=== PATIENT | male | born 1955 | race Caucasian/White ===

== ENCOUNTER 2018-07-22 12:27 | Inpatient (IN) | END 2018-07-27 15:30 | disposition home or self-care (01) | DRG 189 ==

== ENCOUNTER 2019-02-15 09:02 | Emergency (ER) | payer OTHER ==
[~2019-02-15] VITALS: Ht 182.9 cm; Wt 79.5 kg
[~2019-02-15 09:02] MED LIST: ALBU90AE INHALATION; FLUT12HF IH; IPRA3AMP29 HHN; LEVO500T48 PO; MED4DP PO; MONT10TA24 PO
[2019-02-15 09:08] VITALS: Ht 182.9 cm; Wt 79.5 kg
[2019-02-15] MEDS ORDERED: ALBUTEROL 0.5% (NEB) 2.5 MG/0.5 ML AMP INH STA (10:09)
[2019-02-15] MEDS ORDERED: predniSONE 20 MG TAB PO STA (10:09)
[2019-02-15] MEDS ORDERED: IPRATROPIUM (NEB) 0.5 MG/2.5 ML AMP INH STA (10:09)
[2019-02-15] MEDS ORDERED: ALBU8.5H8 INH (10:10)
[2019-02-15] MEDS ORDERED: PRED20TA PO (10:10)
--- NOTE | 2019-02-15 10:14 | ERD ---
ER Documentation Chief Complaint Chief Complaint SOB SINCE LAST NIGHT; PREVIOUS INPATIENT HOSPITALIZATIONS D/T ASTHMA HPI This is a 63-year-old man with history of COPD using home oxygen presenting with wheezing x3 days, he has been using albuterol at home without relief and is requesting prednisone therapy. He denies fevers or chills, no calf or leg swelling, no chest pain, no headache or blurry vision, no vomiting or diarrhea ROS All systems reviewed and are negative except as per history of present illness. Medications Home Meds Active Scripts Prednisone* (Prednisone*) 20 Mg Tab, 40 MG PO DAILY for 4 Days, TAB Prov:MANJEET COLEY MD 02/15/19 Albuterol Sulfate* (Proair HFA*) 8.5 Gm Hfa.aer.ad, 2 PUFF INH Q6H PRN for WHEEZING AND SOB, #1 INHALER Prov:MANJEET COLEY MD 02/15/19 Levofloxacin* (Levaquin*) 500 Mg Tablet, 500 MG PO DAILY@06 for 3 Days, #3 TAB Prov:BIPIN GARNER MD 07/27/18 Methylprednisolone* (Medrol* DOSE PACK) 4 Mg/Dose-Pack Tab.ds.pk, 4 MG PO . DIRECTED for 4 Days, PACKET Prov:BIPIN GARNER MD 07/27/18 Albuterol Sulfate (Proair Respiclick) 90 Mcg Aer.pow.ba, 2 PUFFS INHALATION Q6 PRN for SHORTNESS OF BREATH, #1 BOTTLE 2 Refills Prov:BIPIN GARNER MD 07/27/18 Salmeterol Xinaf-Fluticasone* (Advair HFA*) 45/212 Aerosol Inhaler, 2 INH IH BID , #1 INHALER 1 Refill Prov:BIPIN GARNER MD 07/27/18 Montelukast Sodium* (Montelukast Sodium*) 10 Mg Tablet, 10 MG PO HS for 14 Days, #14 TAB Prov:BIPIN GARNER MD 07/27/18 Ipratropium-Albuterol (Ipratropium-Albuterol) 0.5-3 Mg/3 Ml Ampul.neb, 3 ML HHN Q2H RESP THERAPY PRN for sob/ wheezing for 10 Days, #20 2 Refills Prov:BIPIN GARNER MD 07/27/18 Allergies Allergies: Coded Allergies: Penicillins (Unverified Allergy, Severe, RASH,THROAT GLAND SWELL, 02/15/19) erythromycin base (Unverified Allergy, Severe, RASH (HAND), 02/15/19) PMhx/Soc COPD, hypertension History of Surgery: Yes (HERNIA, DENTAL WORK) Anesthesia Reaction: No Hx Neurological Disorder: No Hx Respiratory Disorders: Yes (ASTHMA) Hx Cardiac Disorders: No Hx Psychiatric Problems: No Hx Miscellaneous Medical Probl: No Hx Alcohol Use: No Hx Substance Use: No Hx Tobacco Use: No Smoking Status: Never smoker FmHx Family History: No diabetes Physical Exam Vitals Vital Signs Date Temp Pulse Resp B/P (MAP) Pulse Ox O2 O2 Flow FiO2 Time Delivery Rate 02/15/19 98.3 99 18 143/72 98 Room Air 11:41 (95) 02/15/19 85 18 96 21 10:26 02/15/19 97.8 84 24 161/70 90 09:08 (100) Physical Exam GENERAL: Well-developed, well-nourished, well-hydrated, in no apparent distress, looks nontoxic in appearance HEENT: Moist mucous membranes, pink conjunctiva, no cervical spine tenderness or step-off deformities, no goiter, no jaundice or icterus, extraocular movements intact without pain. No submandibular induration, and no pharyngeal erythema NEURO: Alert and oriented 3, cranial nerves II through XII intact bilaterally, pupils equal round reactive to light, no focal deficits or facial asymmetry, sensation intact distally Strength 5/5 in upper and lower extremities bilaterally CARDIAC: Regular rate and rhythm, no murmurs rubs or gallops LUNGS: Mild bilateral wheezing, no crackles or stridor ABDOMEN: Soft nontender, no guarding, no rigidity, no rebound, no psoas sign no obturator sign. Normoactive bowel sounds SKIN: Warm and dry to touch, no abrasions, contusions, or hematomas, no lacerations, no ecchymosis, no target lesions, and without ulcers EXTREMITIES: No clubbing cyanosis or edema, calves are bilaterally symmetrical, no Homans sign, no popliteal cord sign. Distal pulses equal and bilateral PSYCH: Normal affect without agitation or irritability Results 24 hrs Current Medications Medications Dose Sig/Hugo Start Time Status Last (Trade) Ordered Route PRN Stop Time Admin Dose Reason Admin Albuterol 10 mg ONCE STAT 02/15/19 DC 02/15/19 (Proventil INH 10:09 10:24 0.5% (Neb)) 02/15/19 10:11 Ipratropium 1 mg ONCE STAT 02/15/19 DC 02/15/19 [place] INH 10:09 10:24 (Atrovent 02/15/19 10:11 0.02% (Neb)) Prednisone 60 mg ONCE STAT 02/15/19 DC 02/15/19 (Prednisone) PO 10:09 10:20 02/15/19 10:11 Procedures/MDM I administered albuterol 10 mg via nebulizer, ipratropium 1 mg via nebulizer, prednisone 60 mg p.o. Repeat pulmonary exam was performed after intervention and just prior to discharge, lung sounds are clear at this time patient appears comfortable in the breathing is unlabored Differential diagnoses considered, included but not limited to acute coronary syndrome, pulmonary embolism, aortic dissection, abdominal aortic aneurysm, sepsis, stroke, meningitis, encephalitis, pneumonia, appendicitis, cholecystitis, bowel obstruction, pyelonephritis, nephrolithiasis, cystitis, as well as metabolic, hematologic, and electrolyte abnormalities. As well as abscess, cellulitis, fractures, and dislocations. Patient feels much better at this time, and vital signs are normal, symptoms have improved. I did give strict instructions to return to the ED if symptoms continue or worsen, patient will otherwise follow-up with primary care physician. Patient understood instructions and agreed to plan. Disclaimer: Inadvertent spelling and grammatical errors are likely due to EHR/dictation software use and do not reflect on the overall quality of patient care. Also, please note that the electronic time recorded on this note does not necessarily reflect the actual time of the patient encounter. Departure Diagnosis: Primary Impression: COPD exacerbation Condition: Good Patient Instructions: Copd Flare MANJEET COLEY MD February 15, 2019 10:14
[2019-02-15 11:41] VITALS: BP 143/72; PULSE 99; RESP 18
== END 2019-02-15 11:44 | disposition home or self-care (01) ==
LOC: FTE 09:02
DX: J44.1 Chronic obstructive pulmonary disease with (acute) exacerbation (principal); I10 Essential (primary) hypertension
CPT/HCPCS: 94644; 99283; J7512